=== PATIENT | male | born 1955 | race Caucasian/White ===

== ENCOUNTER 2021-08-27 09:56 | Observation (INO) | payer MEDICARE ==
[2021-08-27 10:56] LABS: CKMB 0.5 ng/mL (0-6.6)
[2021-08-27] MEDS ORDERED: Acetaminophen 650 MG Suppository PR PRN (13:35)
[2021-08-27] MEDS ORDERED: Acetaminophen 325 MG TAB PO PRN (13:35)
[2021-08-27 14:24] LABS: Troponin I 0.029 ng/mL (< 0.028)
[2021-08-27 15:04] LABS: SARS-CoV-2 NAA Rapid Test Not Detected (NotDetected)
[2021-08-27 17:38] LABS: Troponin I 0.028 ng/mL (< 0.028)
[2021-08-27 17:43] VITALS: BMI 26.2
[2021-08-27] MEDS ORDERED: Carvedilol 12.5 MG TAB PO SCH ×2 (18:00→21:00)
[2021-08-27] MEDS ORDERED: Rosuvastatin 10 MG TAB PO SCH (21:00)
[2021-08-27] MEDS: Nitroglycerin 2% Ointment 1 INCH/1 GM Packet TOP SCH (21:41)
[2021-08-28 05:23] LABS: Hemoglobin 10.2 g/dL (13.5-17.5); Mean Corpuscular Hemoglobin 33.4 pg (27.0-33.0); Mean Corpuscular Volume 101.3 fl (81.2-95.1); Mean Platelet Volume 12.5 fl (7.4-10.4); Platelet Count 184 10x3/uL (150-450); RBC Distribution Width 14.6 % (11.5-14.5); Red Blood Cell (RBC) Count 3.05 10x6/uL (4.32-5.72); White Blood Cell (WBC) Count 10.3 10x3/uL (3.5-10.5)
[2021-08-28 05:41] LABS: Anion Gap 17 mmol/L (10-20); BUN (Urea Nitrogen) 54 mg/dL (8.4-25.7); Calc. Creatinine Clearance 9 mL/min (70-130); Calcium 9.6 mg/dL (7.8-10.44); Carbon Dioxide 30 mmol/L (23-31); Cardiac Risk 3.3 (Less than 4.5); Chloride 99 mmol/L (98-107); Cholesterol 130 mg/dl (< 200 Desired); Glucose 75 mg/dL (80-115); HDL Cholesterol 39 mg/dL (>60 Neg Risk); LDL Cholesterol, Calculated 77 mg/dL; Potassium 4.6 mmol/L (3.5-5.1); Sodium 141 mmol/L (136-145); Triglycerides 70 mg/dL (Less than 150)
[2021-08-28] MEDS: Nitroglycerin 2% Ointment 1 INCH/1 GM Packet TOP SCH (06:19)
[2021-08-28 07:00] LABS: MDiff Complete? YES
[2021-08-28 07:03] LABS: Eosinophils 3 % (0-10); Lymphocytes 30 % (21-51); Monocytes 16 % (0-10); Neutrophil 51 % (42-75)
[2021-08-28 07:04] LABS: Platelet Morphology Comment Appears Adequate; RBC Morphology Normal
[2021-08-28] MEDS ORDERED: Carvedilol 12.5 MG TAB PO SCH (08:00)
[2021-08-28] MEDS ORDERED: Prasugrel 10 MG TAB PO SCH (09:00)
[2021-08-28] MEDS ORDERED: Aspirin 81 mg Enteric Coated Tablet PO SCH (09:00)
[2021-08-28 11:51] VITALS: BP 152/68; TEMP 97.3
== END 2021-08-28 12:15 | disposition home or self-care (01) ==
LOC: CSHERS 09:56 → CSHTELE 17:31
PROVIDERS: ADMIT Internal Medicine; ATTEND Internal Medicine
DX: R07.9 Chest pain, unspecified (principal); R77.8 Other specified abnormalities of plasma proteins; I13.2 Hypertensive heart and chronic kidney disease with heart failure and with stage 5 chronic kidney disease, or end stage renal disease; I50.22 Chronic systolic (congestive) heart failure; I50.84 End stage heart failure; N18.6 End stage renal disease; E78.5 Hyperlipidemia, unspecified; I42.0 Dilated cardiomyopathy; Z79.899 Other long term (current) drug therapy; Z95.810 Presence of automatic (implantable) cardiac defibrillator; Z20.822 Contact with and (suspected) exposure to COVID-19; Z79.82 Long term (current) use of aspirin; Z87.891 Personal history of nicotine dependence; Z95.5 Presence of coronary angioplasty implant and graft
CPT/HCPCS: 80048; 80061; 82553; 82962 ×2; 83880; 84484; 85025; 93005; 99285; G0378 ×3; U0002; 36415; 36416

== ENCOUNTER 2021-09-01 01:57 | Inpatient (IN) | payer MEDICARE ==
[2021-09-01 02:21] LABS: #Basophils 0.1 10x3/uL (0.0-0.2); #Eosinphils 0.4 10x3/uL (0.0-0.5); #Monocytes 1.4 10x3/uL (0.0-1.1); #Neutrophils 5.2 10x3/uL (1.5-8.4); %Basophils 0.7 % (0.0-2.0); %Eosinophils 4.3 % (0.0-6.0); %Lymphocytes 30.2 % (18.0-47.0); %Monocytes 13.6 % (0.0-10.0); Hemoglobin 9.9 g/dL (13.5-17.5); Mean Corpuscular HGB CONC 32.7 g/dL (32.0-36.0); Mean Corpuscular Hemoglobin 33.1 pg (27.0-33.0); Mean Corpuscular Volume 101.3 fl (81.2-95.1); Mean Platelet Volume 12.2 fl (7.4-10.4); Platelet Count 189 10x3/uL (150-450); RBC Distribution Width 14.6 % (11.5-14.5); Red Blood Cell (RBC) Count 2.99 10x6/uL (4.32-5.72); White Blood Cell (WBC) Count 10.1 10x3/uL (3.5-10.5)
[2021-09-01 02:39] LABS: ALT (SGPT) 7 U/L (8-55); AST (SGOT) 9 U/L (5-34); Albumin 3.5 g/dL (3.4-4.8); Alkaline Phosphatase 56 U/L (40-110); Anion Gap 19 mmol/L (10-20); BUN (Urea Nitrogen) 38 mg/dL (8.4-25.7); Bilirubin, Total 0.4 mg/dL (0.2-1.2); Calc. Creatinine Clearance 0 mL/min (70-130); Calcium 8.6 mg/dL (7.8-10.44); Carbon Dioxide 26 mmol/L (23-31); Chloride 102 mmol/L (98-107); Glucose 88 mg/dL (80-115); Potassium 4.1 mmol/L (3.5-5.1); Protein, Total 5.5 g/dL (5.8-8.1); Sodium 143 mmol/L (136-145)
[2021-09-01] MEDS ORDERED: Guaifenesin DM 100-10/5 ML UDCUP PO PRN (03:27)
[2021-09-01] MEDS ORDERED: Senokot S 8.6-50 MG TAB PO PRN (03:27)
[2021-09-01] MEDS ORDERED: Calcium Carbonate 500 MG ChewTAB PO PRN (03:27)
[2021-09-01] MEDS ORDERED: Ondansetron PF 4 MG/2 ML Vial IVP PRN (03:27)
[2021-09-01] MEDS ORDERED: HYDROcodone/Acetaminophen 5/325 mg Tablet PO PRN (03:27)
[2021-09-01] MEDS ORDERED: Zolpidem Tartrate 5 MG TAB PO PRN (03:27)
[2021-09-01] MEDS ORDERED: Acetaminophen 325 MG TAB PO PRN (03:27)
[2021-09-01] MEDS ORDERED: Nitroglycerin 0.4 MG TAB (25 Tab Bottle) SL PRN (03:27)
[2021-09-01 04:35] VITALS: BMI 26.6
[2021-09-01 06:43] LABS: CKMB 0.6 ng/mL (0-6.6)
[2021-09-01] MEDS ORDERED: Nitroglycerin 2% Ointment 1 INCH/1 GM Packet TOP SCH (09:00)
[2021-09-01] MEDS: Aspirin 81 mg Enteric Coated Tablet PO SCH (09:35)
[2021-09-01] MEDS: Carvedilol 12.5 MG TAB PO SCH ×2 (09:35→16:54)
[2021-09-01] MEDS: Prasugrel 10 MG TAB PO SCH (09:35)
[2021-09-01] MEDS: Heparin 5,000 UNITS/ML VIAL SC SCH ×3 (09:36→20:29)
[2021-09-01 10:33] LABS: CKMB 0.7 ng/mL (0-6.6)
[2021-09-01] MEDS: Sacubitril 49 MG/Valsartan 51 MG TABLET PO SCH ×2 (17:33→20:30)
[2021-09-01] MEDS: Folic Acid/Vit B Comp W-C PO SCH (20:29)
[2021-09-01] MEDS: Rosuvastatin 10 MG TAB PO SCH (20:29)
[2021-09-01] MEDS ORDERED: DHA PO SCH (21:00)
[2021-09-01] MEDS ORDERED: KRILL PO SCH (21:00)
[2021-09-01] MEDS ORDERED: OMEGA PO SCH (21:00)
[2021-09-01] MEDS ORDERED: LIPIDS PO SCH (21:00)
[2021-09-01] MEDS ORDERED: EPA PO SCH (21:00)
[2021-09-02] MEDS ORDERED: Oxymetazoline HCl 0.05% ( 15 ML ) NASAL PRN (01:47)
[2021-09-02] MEDS ORDERED: Loratadine 10 MG TAB PO PRN (01:47)
[2021-09-02] MEDS ORDERED: Communication Order-Pharmacy FS SCH (09:00)
[2021-09-02] MEDS ORDERED: FLU VACC QS2021-22(65YR UP)/PF 240 MCG/0.7 ML SYRINGE IM ONE (09:00)
[2021-09-02] MEDS: Heparin 5,000 UNITS/ML VIAL SC SCH (09:58)
[2021-09-02] MEDS: Aspirin 81 mg Enteric Coated Tablet PO SCH (12:12)
[2021-09-02] MEDS: Sacubitril 49 MG/Valsartan 51 MG TABLET PO SCH ×2 (12:12→21:01)
[2021-09-02] MEDS: Prasugrel 10 MG TAB PO SCH (12:12)
[2021-09-02] MEDS: Carvedilol 12.5 MG TAB PO SCH ×2 (12:12→21:02)
[2021-09-02 12:46] LABS: PTT 25.5 sec (22.0-33.0); Prothrombin Time 10.7 sec (9.5-12.1)
[2021-09-02] MEDS ORDERED: Heparin 10,000 UNITS/ 10 ML VIAL SLOW IVP PRN (13:14)
[2021-09-02] MEDS ORDERED: Heparin 10,000 UNITS/ 10 ML VIAL ONE ×2 (14:16→15:29)
[2021-09-02] MEDS ORDERED: Nitroglycerin 50 MG/250 ML BOT 250 ML ONE (14:16)
[2021-09-02] MEDS ORDERED: Verapamil 5 MG/2 ML VIAL ONE (14:17)
[2021-09-02] MEDS ORDERED: Adenosine 6 MG/2 ML VIAL ONE (14:17)
[2021-09-02] MEDS ORDERED: Bivalirudin 250 MG VIAL ONE (14:17)
[2021-09-02] MEDS ORDERED: Lidocaine 1% PF 5 ML VIAL ONE (14:18)
[2021-09-02] MEDS ORDERED: Midazolam HCl 2 mg/2 ml Vial ONE (14:33)
[2021-09-02] MEDS ORDERED: Fentanyl 100 MCG/2 ML VIAL ONE (14:33)
[2021-09-02] MEDS ORDERED: Atropine Sulfate 0.4 mg/1 ml Vial ONE (15:04)
[2021-09-02] MEDS ORDERED: Ondansetron PF 4 MG/2 ML Vial ONE (15:04)
[2021-09-02] MEDS ORDERED: Metoprolol Tartrate 5 MG/5 ML VIAL ONE (16:10)
[2021-09-02] MEDS ORDERED: Nitroglycerin 0.4 MG TAB (25 Tab Bottle) SL PRN (16:39)
[2021-09-02] MEDS ORDERED: Sodium Chloride 0.9% 200 ML IV PRN (16:39)
[2021-09-02] MEDS ORDERED: Acetaminophen/Codeine 30-300mg Tablet PO PRN ×2 (16:39)
[2021-09-02 17:43] LABS: SARS-CoV-2 PCR by NAA Not Detected (NotDetected)
[2021-09-02] MEDS: Rosuvastatin 10 MG TAB PO SCH (21:02)
[2021-09-02] MEDS: Folic Acid/Vit B Comp W-C PO SCH (21:02)
[2021-09-03] MEDS: Prasugrel 10 MG TAB PO SCH (08:07)
[2021-09-03] MEDS: Aspirin 81 mg Enteric Coated Tablet PO SCH (08:07)
[2021-09-03] MEDS: Sacubitril 49 MG/Valsartan 51 MG TABLET PO SCH (08:08)
[2021-09-03] MEDS: Carvedilol 12.5 MG TAB PO SCH (08:09)
[2021-09-03 12:22] VITALS: BP 125/60; TEMP 98.4
== END 2021-09-03 14:44 | disposition home or self-care (01) | DRG 246 ==
LOC: CSHERS 01:57 → CSHTELE 04:28 → OBSVTOIN 09-02 16:56
PROVIDERS: ADMIT Student in an Organized Health Care Education/Training Program; ATTEND Internal Medicine
PROC: 027034Z Dilation of Coronary Artery, One Artery with Drug-eluting Intraluminal Device, Percutaneous Approach (ICD-10-PCS; principal; 2021-09-02)
PROC: B2111ZZ Fluoroscopy of Multiple Coronary Arteries using Low Osmolar Contrast (ICD-10-PCS; 2021-09-02)
PROC: B240ZZ3 Ultrasonography of Single Coronary Artery, Intravascular (ICD-10-PCS; 2021-09-02)
DX: I25.110 Atherosclerotic heart disease of native coronary artery with unstable angina pectoris (principal); N18.6 End stage renal disease; Z94.84 Stem cells transplant status; E85.9 Amyloidosis, unspecified; I13.2 Hypertensive heart and chronic kidney disease with heart failure and with stage 5 chronic kidney disease, or end stage renal disease; I50.22 Chronic systolic (congestive) heart failure; I42.0 Dilated cardiomyopathy; Z20.822 Contact with and (suspected) exposure to COVID-19; D53.9 Nutritional anemia, unspecified; E78.5 Hyperlipidemia, unspecified; E78.00 Pure hypercholesterolemia, unspecified; Z96.652 Presence of left artificial knee joint; Z95.810 Presence of automatic (implantable) cardiac defibrillator; Z95.5 Presence of coronary angioplasty implant and graft; Z88.2 Allergy status to sulfonamides; Z79.82 Long term (current) use of aspirin; Z79.899 Other long term (current) drug therapy; Z99.2 Dependence on renal dialysis; Z82.49 Family history of ischemic heart disease and other diseases of the circulatory system; Z90.81 Acquired absence of spleen; I25.2 Old myocardial infarction
CPT/HCPCS: 36415; 71045; 80053; 82553; 82607; 82746; 83880; 84484; 85025; 85347; 85610; 85730; 90935; 92928; 92978; 93005; 93306; 93454; 99152; 99153; C1753; C1769; C1874; C1887; C9600; G0257; G0378; J0153; J0461; J0583; J1644; J2250; J2405; J3010; U0003; U0005

== ENCOUNTER 2021-09-14 22:56 | Inpatient (IN) | payer MEDICARE ==
[2021-09-15 00:09] LABS: PTT 24.8 sec (22.0-33.0); Prothrombin Time 11.2 sec (9.5-12.1)
[2021-09-15] MEDS ORDERED: Guaifenesin DM 100-10/5 ML UDCUP PO PRN (00:23)
[2021-09-15] MEDS ORDERED: Acetaminophen 325 MG TAB PO PRN (00:23)
[2021-09-15] MEDS ORDERED: Nitroglycerin 0.4 MG TAB (25 Tab Bottle) SL PRN (00:23)
[2021-09-15] MEDS ORDERED: Ondansetron PF 4 MG/2 ML Vial IVP PRN (00:23)
[2021-09-15] MEDS ORDERED: Senokot S 8.6-50 MG TAB PO PRN (00:23)
[2021-09-15] MEDS ORDERED: HYDROcodone/Acetaminophen 5/325 mg Tablet PO PRN (00:23)
[2021-09-15] MEDS ORDERED: Zolpidem Tartrate 5 MG TAB PO PRN (00:23)
[2021-09-15] MEDS ORDERED: Morphine 4 MG/ML VIAL SLOW IVP PRN (00:23)
[2021-09-15] MEDS ORDERED: Communication Order-Pharmacy FS ONE (00:23)
[2021-09-15] MEDS ORDERED: Calcium Carbonate 500 MG ChewTAB PO PRN (00:23)
[2021-09-15] MEDS ORDERED: Nitroglycerin 50 MG/250 ML BOT 250 ML IVPB SCH (00:30)
[2021-09-15 00:54] LABS: Platelet Count 195 10x3/uL (150-450)
[2021-09-15] MEDS: Heparin 10,000 UNITS/ 10 ML VIAL SLOW IVP SCH ×4 (01:29→22:14)
[2021-09-15 01:30] LABS: CKMB 0.6 ng/mL (0-6.6)
[2021-09-15] MEDS: Heparin 25,000 units/D5W 500 ML IVPB SCH ×2 (01:30→22:15)
[2021-09-15 06:55] LABS: #Basophils 0.1 10x3/uL (0.0-0.2); #Eosinphils 0.4 10x3/uL (0.0-0.5); #Monocytes 1.4 10x3/uL (0.0-1.1); #Neutrophils 4.2 10x3/uL (1.5-8.4); %Basophils 1.3 % (0.0-2.0); %Eosinophils 4.1 % (0.0-6.0); %Lymphocytes 34.6 % (18.0-47.0); %Monocytes 14.7 % (0.0-10.0); Hemoglobin 9.5 g/dL (13.5-17.5); Mean Corpuscular HGB CONC 32.2 g/dL (32.0-36.0); Mean Corpuscular Hemoglobin 33.2 pg (27.0-33.0); Mean Corpuscular Volume 103.1 fl (81.2-95.1); Platelet Count 187 10x3/uL (150-450); RBC Distribution Width 15.3 % (11.5-14.5); Red Blood Cell (RBC) Count 2.86 10x6/uL (4.32-5.72); White Blood Cell (WBC) Count 9.2 10x3/uL (3.5-10.5)
[2021-09-15 07:05] LABS: Anion Gap 18 mmol/L (10-20); BUN (Urea Nitrogen) 43 mg/dL (8.4-25.7); Calc. Creatinine Clearance 8 mL/min (70-130); Calcium 9.7 mg/dL (7.8-10.44); Carbon Dioxide 32 mmol/L (23-31); Chloride 96 mmol/L (98-107); Glucose 91 mg/dL (80-115); Potassium 4.7 mmol/L (3.5-5.1); Sodium 141 mmol/L (136-145)
[2021-09-15 07:27] LABS: CKMB 0.8 ng/mL (0-6.6)
[2021-09-15] MEDS: Aspirin 81 mg Enteric Coated Tablet PO SCH (08:47)
[2021-09-15] MEDS: Sacubitril 49 MG/Valsartan 51 MG TABLET PO SCH ×2 (08:47→21:13)
[2021-09-15] MEDS: Carvedilol 12.5 MG TAB PO SCH ×2 (08:47→17:05)
[2021-09-15] MEDS: Prasugrel 10 MG TAB PO SCH (08:47)
[2021-09-15] MEDS ORDERED: Rosuvastatin 10 MG TAB PO SCH (21:00)
[2021-09-15] MEDS ORDERED: DHA PO SCH (21:00)
[2021-09-15] MEDS ORDERED: OMEGA PO SCH (21:00)
[2021-09-15] MEDS ORDERED: LIPIDS PO SCH (21:00)
[2021-09-15] MEDS ORDERED: Folic Acid/Vit B Comp W-C PO SCH (21:00)
[2021-09-15] MEDS ORDERED: EPA PO SCH (21:00)
[2021-09-15] MEDS ORDERED: KRILL PO SCH (21:00)
[2021-09-15] MEDS: Folic Acid/Vit B Comp W-C PO SCH (21:13)
[2021-09-15] MEDS: Rosuvastatin 20 MG TAB PO SCH (21:13)
[2021-09-16 04:21] LABS: #Eosinphils 0.3 10x3/uL (0.0-0.5); #Monocytes 0.3 10x3/uL (0.0-1.1); #Neutrophils 7.4 10x3/uL (1.5-8.4); %Basophils 0.1 % (0.0-2.0); %Eosinophils 3.3 % (0.0-6.0); %Lymphocytes 12.4 % (18.0-47.0); %Monocytes 3.2 % (0.0-10.0); %Neutrophils 80.8 % (40.0-75.0); Hemoglobin 10.2 g/dL (13.5-17.5); Mean Corpuscular HGB CONC 33.2 g/dL (32.0-36.0); Mean Corpuscular Hemoglobin 33.8 pg (27.0-33.0); Mean Corpuscular Volume 101.7 fl (81.2-95.1); Mean Platelet Volume 12.5 fl (7.4-10.4); Platelet Count 199 10x3/uL (150-450); RBC Distribution Width 15.3 % (11.5-14.5); Red Blood Cell (RBC) Count 3.02 10x6/uL (4.32-5.72); White Blood Cell (WBC) Count 9.2 10x3/uL (3.5-10.5)
[2021-09-16 04:38] LABS: Anion Gap 18 mmol/L (10-20); BUN (Urea Nitrogen) 53 mg/dL (8.4-25.7); Calc. Creatinine Clearance 7 mL/min (70-130); Carbon Dioxide 30 mmol/L (23-31); Chloride 95 mmol/L (98-107); Glucose 95 mg/dL (80-115); Potassium 4.9 mmol/L (3.5-5.1); Sodium 138 mmol/L (136-145)
[2021-09-16 04:50] LABS: Prothrombin Time 11.5 sec (9.5-12.1)
[2021-09-16 04:57] LABS: PTT 94.1 sec (22.0-33.0)
[2021-09-16] MEDS: Carvedilol 12.5 MG TAB PO SCH ×2 (08:50→16:36)
[2021-09-16] MEDS: Aspirin 81 mg Enteric Coated Tablet PO SCH ×2 (08:50→09:05)
[2021-09-16] MEDS: Prasugrel 10 MG TAB PO SCH (08:52)
[2021-09-16] MEDS: Sacubitril 49 MG/Valsartan 51 MG TABLET PO SCH ×2 (09:10→20:42)
[2021-09-16] MEDS ORDERED: Communication Order-Pharmacy FS SCH (09:30)
[2021-09-16 10:03] LABS: Troponin I 0.095 ng/mL (< 0.028)
[2021-09-16 10:05] LABS: PTT 72.9 sec (22.0-33.0)
[2021-09-16] MEDS: Folic Acid/Vit B Comp W-C PO SCH (20:42)
[2021-09-16] MEDS: Rosuvastatin 20 MG TAB PO SCH (20:43)
[2021-09-17 03:56] LABS: #Eosinphils 0.4 10x3/uL (0.0-0.5); #Monocytes 0.7 10x3/uL (0.0-1.1); #Neutrophils 9.4 10x3/uL (1.5-8.4); %Basophils 0.3 % (0.0-2.0); %Eosinophils 3.7 % (0.0-6.0); %Lymphocytes 9.4 % (18.0-47.0); %Neutrophils 80.3 % (40.0-75.0); Hemoglobin 10.9 g/dL (13.5-17.5); Mean Corpuscular HGB CONC 33.1 g/dL (32.0-36.0); Mean Corpuscular Hemoglobin 33.7 pg (27.0-33.0); Mean Corpuscular Volume 101.9 fl (81.2-95.1); Mean Platelet Volume 12.2 fl (7.4-10.4); Platelet Count 195 10x3/uL (150-450); RBC Distribution Width 15.4 % (11.5-14.5); Red Blood Cell (RBC) Count 3.23 10x6/uL (4.32-5.72); White Blood Cell (WBC) Count 11.7 10x3/uL (3.5-10.5)
[2021-09-17 04:07] LABS: PTT 26.8 sec (22.0-33.0); Prothrombin Time 11.2 sec (9.5-12.1)
[2021-09-17 04:12] LABS: ALT (SGPT) 10 U/L (8-55); AST (SGOT) 9 U/L (5-34); Albumin 3.6 g/dL (3.4-4.8); Alkaline Phosphatase 55 U/L (40-110); Anion Gap 14 mmol/L (10-20); BUN (Urea Nitrogen) 35 mg/dL (8.4-25.7); Bilirubin, Total 0.4 mg/dL (0.2-1.2); Calc. Creatinine Clearance 11 mL/min (70-130); Calcium 8.9 mg/dL (7.8-10.44); Carbon Dioxide 30 mmol/L (23-31); Chloride 99 mmol/L (98-107); Globulin 2.7 g/dL (2.4-3.5); Glucose 93 mg/dL (80-115); Potassium 4.3 mmol/L (3.5-5.1); Protein, Total 6.3 g/dL (5.8-8.1); Sodium 139 mmol/L (136-145)
[2021-09-17] MEDS: Sacubitril 49 MG/Valsartan 51 MG TABLET PO SCH (08:10)
[2021-09-17] MEDS: Carvedilol 12.5 MG TAB PO SCH (08:10)
[2021-09-17] MEDS: Prasugrel 10 MG TAB PO SCH (08:10)
[2021-09-17] MEDS: Aspirin 81 mg Enteric Coated Tablet PO SCH (08:10)
[2021-09-17] MEDS ORDERED: Nitroglycerin 50 MG/250 ML BOT 0 ML ONE (08:52)
[2021-09-17] MEDS ORDERED: Heparin 10,000 UNITS/ 10 ML VIAL ONE (08:52)
[2021-09-17] MEDS ORDERED: Verapamil 5 MG/2 ML VIAL ONE (08:53)
[2021-09-17] MEDS ORDERED: Adenosine 6 MG/2 ML VIAL ONE (08:54)
[2021-09-17] MEDS ORDERED: Bivalirudin 250 MG VIAL ONE (08:54)
[2021-09-17] MEDS ORDERED: Lidocaine 1% PF 5 ML VIAL ONE (08:55)
[2021-09-17] MEDS ORDERED: Midazolam HCl 2 mg/2 ml Vial ONE (08:56)
[2021-09-17] MEDS ORDERED: Fentanyl 100 MCG/2 ML VIAL ONE (08:56)
[2021-09-17 09:19] VITALS: BMI 27.1
[2021-09-17] MEDS ORDERED: Lidocaine 1% (PF) 30 ML VIAL ONE (09:53)
[2021-09-17] MEDS ORDERED: Sodium Chloride 0.9% 200 ML IV PRN (11:24)
[2021-09-17] MEDS ORDERED: Acetaminophen/Codeine 30-300mg Tablet PO PRN ×2 (11:24)
[2021-09-17] MEDS ORDERED: Nitroglycerin 0.4 MG TAB (25 Tab Bottle) SL PRN (11:24)
[2021-09-17 13:53] VITALS: TEMP 98
[2021-09-17] MEDS ORDERED: Heparin 5,000 UNITS/ML VIAL SC SCH (15:00)
[2021-09-17 16:27] VITALS: BP 125/56
== END 2021-09-17 17:10 | disposition home or self-care (01) | DRG 246 ==
LOC: CSHIMCU 22:56
PROVIDERS: ADMIT Student in an Organized Health Care Education/Training Program; ATTEND Internal Medicine
PROC: 5A1D70Z Performance of Urinary Filtration, Intermittent, Less than 6 Hours Per Day (ICD-10-PCS; 2021-09-16)
PROC: 027034Z Dilation of Coronary Artery, One Artery with Drug-eluting Intraluminal Device, Percutaneous Approach (ICD-10-PCS; principal; 2021-09-17)
PROC: 4A023N7 Measurement of Cardiac Sampling and Pressure, Left Heart, Percutaneous Approach (ICD-10-PCS; 2021-09-17)
PROC: B2111ZZ Fluoroscopy of Multiple Coronary Arteries using Low Osmolar Contrast (ICD-10-PCS; 2021-09-17)
DX: I25.118 Atherosclerotic heart disease of native coronary artery with other forms of angina pectoris (principal); N18.6 End stage renal disease; I24.9 Acute ischemic heart disease, unspecified; I16.1 Hypertensive emergency; E85.9 Amyloidosis, unspecified; I12.0 Hypertensive chronic kidney disease with stage 5 chronic kidney disease or end stage renal disease; I42.0 Dilated cardiomyopathy; R77.8 Other specified abnormalities of plasma proteins; D53.9 Nutritional anemia, unspecified; E78.5 Hyperlipidemia, unspecified; Z96.652 Presence of left artificial knee joint; Z95.5 Presence of coronary angioplasty implant and graft; Z99.2 Dependence on renal dialysis; Z95.810 Presence of automatic (implantable) cardiac defibrillator; Z88.2 Allergy status to sulfonamides; Z79.82 Long term (current) use of aspirin; Z79.899 Other long term (current) drug therapy; Z90.81 Acquired absence of spleen; Z87.891 Personal history of nicotine dependence
CPT/HCPCS: 36415; 80048; 80053; 82553; 84484; 85014; 85018; 85025; 85049; 85347; 85610; 85730; 90935; 92928; 92978; 93005; 93010; 93454; 97139; 99152; 99153; C1713; C1753; C1874; C1887; C9600; G0257; J0153; J0583; J1644; J2001; J2250; J2405; J3010

== ENCOUNTER 2021-10-03 13:42 | Observation (INO) | payer MEDICARE ==
[2021-10-03] MEDS ORDERED: diphenhydrAMINE 50 MG/ML VIAL ONE (14:10)
[2021-10-03] MEDS ORDERED: diphenhydrAMINE 25 MG CAP ONE (14:12)
[2021-10-03 14:39] LABS: Hemoglobin 10.6 g/dL (13.5-17.5); Mean Corpuscular HGB CONC 33.8 g/dL (32.0-36.0); Mean Corpuscular Hemoglobin 34.3 pg (27.0-33.0); Mean Corpuscular Volume 101.6 fl (81.2-95.1); Mean Platelet Volume 12.3 fl (7.4-10.4); Platelet Count 202 10x3/uL (150-450); RBC Distribution Width 15.4 % (11.5-14.5); Red Blood Cell (RBC) Count 3.09 10x6/uL (4.32-5.72); White Blood Cell (WBC) Count 9.5 10x3/uL (3.5-10.5)
[2021-10-03 14:47] LABS: ALT (SGPT) 9 U/L (8-55); AST (SGOT) 9 U/L (5-34); Alkaline Phosphatase 54 U/L (40-110); Anion Gap 14 mmol/L (10-20); BUN (Urea Nitrogen) 42 mg/dL (8.4-25.7); Bilirubin, Total 0.6 mg/dL (0.2-1.2); Calc. Creatinine Clearance 0 mL/min (70-130); Calcium 10.1 mg/dL (7.8-10.44); Carbon Dioxide 32 mmol/L (23-31); Chloride 96 mmol/L (98-107); Globulin 2.5 g/dL (2.4-3.5); Glucose 125 mg/dL (80-115); Lipase 37 U/L (8-78); Potassium 5.2 mmol/L (3.5-5.1); Protein, Total 6.5 g/dL (5.8-8.1); Sodium 137 mmol/L (136-145)
[2021-10-03 15:08] LABS: CKMB 0.7 ng/mL (0-6.6)
[2021-10-03 15:33] LABS: MDiff Complete? YES; Manual Diff?? YES
[2021-10-03 15:34] LABS: Eosinophils 4 % (0-10); Lymphocytes 20 % (21-51); Monocytes 16 % (0-10); Neutrophil 60 % (42-75); Platelet Morphology Comment Appears Adequate; RBC Morphology Normal
[2021-10-03] MEDS ORDERED: Sodium Chloride 0.65% Nasal 44 ML BOT EA NARE PRN (17:22)
[2021-10-03] MEDS ORDERED: Carvedilol 12.5 MG TAB PO SCH (18:30)
[2021-10-03] MEDS ORDERED: hydrALAZINE 20 MG/ML VIAL SLOW IVP PRN (18:48)
[2021-10-03 19:11] VITALS: BMI 25.8
[2021-10-03 20:32] LABS: Troponin I 0.075 ng/mL (< 0.028)
[2021-10-03] MEDS ORDERED: Rosuvastatin 20 MG TAB PO SCH (21:00)
[2021-10-03] MEDS: Sacubitril 49 MG/Valsartan 51 MG TABLET PO SCH (22:53)
[2021-10-03] MEDS: Heparin 5,000 UNITS/ML VIAL SC SCH (23:44)
[2021-10-04 04:54] LABS: Hemoglobin 9.9 g/dL (13.5-17.5); Mean Corpuscular HGB CONC 33.4 g/dL (32.0-36.0); Mean Corpuscular Hemoglobin 33.7 pg (27.0-33.0); Mean Corpuscular Volume 100.7 fl (81.2-95.1); Mean Platelet Volume 12.4 fl (7.4-10.4); Platelet Count 197 10x3/uL (150-450); RBC Distribution Width 15.1 % (11.5-14.5); Red Blood Cell (RBC) Count 2.94 10x6/uL (4.32-5.72); White Blood Cell (WBC) Count 9.8 10x3/uL (3.5-10.5)
[2021-10-04 04:55] LABS: Anion Gap 17 mmol/L (10-20); BUN (Urea Nitrogen) 53 mg/dL (8.4-25.7); Calc. Creatinine Clearance 8 mL/min (70-130); Calcium 9.7 mg/dL (7.8-10.44); Carbon Dioxide 29 mmol/L (23-31); Chloride 98 mmol/L (98-107); Glucose 94 mg/dL (80-115); Potassium 5.3 mmol/L (3.5-5.1); Sodium 139 mmol/L (136-145)
[2021-10-04 05:05] LABS: MDiff Complete? YES
[2021-10-04 05:15] LABS: Band 1 % (5-11); Eosinophils 3 % (0-10); Lymphocytes 25 % (21-51); Monocytes 15 % (0-10); Neutrophil 56 % (42-75)
[2021-10-04 05:17] LABS: Platelet Morphology Comment Appears Adequate; RBC Morphology Normal
[2021-10-04] MEDS ORDERED: Carvedilol 12.5 MG TAB PO SCH (08:00)
[2021-10-04 08:33] VITALS: BP 185/79; TEMP 98
[2021-10-04] MEDS ORDERED: Aspirin 81 mg Enteric Coated Tablet PO SCH (09:00)
[2021-10-04] MEDS ORDERED: FLU VACC QS2021-22(65YR UP)/PF 240 MCG/0.7 ML SYRINGE IM ONE (09:00)
[2021-10-04] MEDS ORDERED: Loratadine 10 MG TAB PO SCH (09:00)
[2021-10-04] MEDS ORDERED: Prasugrel 10 MG TAB PO SCH (09:00)
[2021-10-04] MEDS: Heparin 5,000 UNITS/ML VIAL SC SCH ×2 (09:28→15:32)
[2021-10-04] MEDS ORDERED: Heparin 10,000 UNITS/ 10 ML VIAL SLOW IVP PRN (11:03)
[2021-10-04] MEDS: Sacubitril 49 MG/Valsartan 51 MG TABLET PO SCH (15:28)
== END 2021-10-04 16:05 | disposition home or self-care (01) ==
LOC: CSHERS 13:42 → INTOOBSV 18:14 → CSHTELE 18:14
PROVIDERS: ADMIT Internal Medicine; ATTEND Family Medicine
DX: R07.9 Chest pain, unspecified (principal); I25.10 Atherosclerotic heart disease of native coronary artery without angina pectoris; I13.0 Hypertensive heart and chronic kidney disease with heart failure and stage 1 through stage 4 chronic kidney disease, or unspecified chronic kidney disease; I50.42 Chronic combined systolic (congestive) and diastolic (congestive) heart failure; N18.6 End stage renal disease; I42.0 Dilated cardiomyopathy; Z95.5 Presence of coronary angioplasty implant and graft; Z79.899 Other long term (current) drug therapy; Z79.82 Long term (current) use of aspirin; Z79.01 Long term (current) use of anticoagulants; Z95.810 Presence of automatic (implantable) cardiac defibrillator; Z87.891 Personal history of nicotine dependence; E78.5 Hyperlipidemia, unspecified
CPT/HCPCS: 36415; 71045; 80048; 80053; 82553; 83690; 83880; 84484; 85025; 90935; 93005; 94760; G0257; G0378; J1200; J1644

== ENCOUNTER 2021-12-14 11:02 | Inpatient (IN) | payer MEDICARE ==
[2021-12-14] MEDS ORDERED: Nitroglycerin 0.4 MG TAB 1 EACH ONE (11:36)
[2021-12-14] MEDS ORDERED: Nitroglycerin 2% Ointment 1 INCH/1 GM Packet ONE (11:36)
[2021-12-14 11:39] LABS: #Basophils 0.1 10x3/uL (0.0-0.2); #Eosinphils 0.1 10x3/uL (0.0-0.5); #Monocytes 1.3 10x3/uL (0.0-1.1); #Neutrophils 7.7 10x3/uL (1.5-8.4); %Basophils 0.8 % (0.0-2.0); %Eosinophils 1.1 % (0.0-6.0); %Lymphocytes 14.4 % (18.0-47.0); %Monocytes 11.8 % (0.0-10.0); %Neutrophils 71.7 % (40.0-75.0); Hemoglobin 12.4 g/dL (13.5-17.5); Mean Corpuscular HGB CONC 33.1 g/dL (32.0-36.0); Mean Corpuscular Hemoglobin 33.2 pg (27.0-33.0); Mean Corpuscular Volume 100.3 fl (81.2-95.1); Mean Platelet Volume 11.9 fl (7.4-10.4); Platelet Count 173 10x3/uL (150-450); RBC Distribution Width 17.1 % (11.5-14.5); Red Blood Cell (RBC) Count 3.74 10x6/uL (4.32-5.72); White Blood Cell (WBC) Count 10.7 10x3/uL (3.5-10.5)
[2021-12-14 11:44] LABS: ALT (SGPT) 25 U/L (8-55); AST (SGOT) 21 U/L (5-34); Albumin 4.3 g/dL (3.4-4.8); Alkaline Phosphatase 63 U/L (40-110); Anion Gap 20 mmol/L (10-20); BUN (Urea Nitrogen) 32 mg/dL (8.4-25.7); Bilirubin, Total 0.9 mg/dL (0.2-1.2); CK (CPK) 50 U/L (30-200); Calc. Creatinine Clearance 0 mL/min (70-130); Calcium 9.6 mg/dL (7.8-10.44); Carbon Dioxide 27 mmol/L (23-31); Chloride 99 mmol/L (98-107); Globulin 2.1 g/dL (2.4-3.5); Glucose 90 mg/dL (80-115); Potassium 4.9 mmol/L (3.5-5.1); Protein, Total 6.4 g/dL (5.8-8.1); Sodium 141 mmol/L (136-145)
[2021-12-14 12:08] LABS: CKMB 0.9 ng/mL (0-6.6)
[2021-12-14 12:59] LABS: SARS-CoV-2 NAA Rapid Test Not Detected (NotDetected)
[2021-12-14 13:09] LABS: Bilirubin Neg (Negative); Blood, Urine Negative (Negative); Clarity Clear (Clear); Glucose, Urine (Dipstick) Normal (Negative); Ketone, Urine Negative (Negative); Leukocyte Negative (Negative); Nitrite Negative (Negative); Protein, Urine (Dipstick) 100 mg/dl (Neg-Trace); Specific Gravity, Urine 1.015 (1.002-1.036); Urobilinogen Normal mg/dL (Less than 2)
[2021-12-14 13:18] LABS: RBC/HPF 0-3 HPF (0-3); WBC/HPF 0-3 HPF (0-3)
[2021-12-14 13:19] LABS: Bacteria/HPF Rare-Few HPF (None Seen); Squamous Epithelial 0-3 HPF (0-3)
[2021-12-14] MEDS ORDERED: Acetaminophen 325 MG TAB PO PRN (13:19)
[2021-12-14] MEDS ORDERED: Ondansetron PF 4 MG/2 ML Vial IVP PRN (13:19)
[2021-12-14] MEDS ORDERED: Furosemide 40 MG/4 ML VIAL SLOW IVP SCH (13:30)
[2021-12-14 14:25] VITALS: BMI 26.6
[2021-12-14] MEDS: Heparin 5,000 UNITS/ML VIAL SC SCH ×2 (15:20→20:16)
[2021-12-14] MEDS ORDERED: hydrALAZINE 20 MG/ML VIAL SLOW IVP PRN (15:22)
[2021-12-14] MEDS: Carvedilol 12.5 MG TAB PO SCH (17:55)
[2021-12-14] MEDS: Rosuvastatin 10 MG TAB PO SCH (20:17)
[2021-12-14] MEDS: Folic Acid/Vit B Comp W-C PO SCH (20:18)
[2021-12-14] MEDS: Sacubitril 49 MG/Valsartan 51 MG TABLET PO SCH (20:22)
[2021-12-15 00:25] LABS: Troponin I 0.042 ng/mL (< 0.028)
[2021-12-15] MEDS ORDERED: cloNIDine 0.1 MG TAB PO SCH (02:00)
[2021-12-15 05:04] LABS: #Basophils 0.1 10x3/uL (0.0-0.2); #Eosinphils 0.2 10x3/uL (0.0-0.5); #Monocytes 1.2 10x3/uL (0.0-1.1); %Basophils 0.7 % (0.0-2.0); %Eosinophils 1.5 % (0.0-6.0); %Monocytes 11.1 % (0.0-10.0); %Neutrophils 75.3 % (40.0-75.0); Mean Corpuscular HGB CONC 33.6 g/dL (32.0-36.0); Mean Corpuscular Hemoglobin 32.9 pg (27.0-33.0); Mean Corpuscular Volume 97.9 fl (81.2-95.1); Mean Platelet Volume 12.5 fl (7.4-10.4); Platelet Count 174 10x3/uL (150-450); RBC Distribution Width 16.9 % (11.5-14.5); Red Blood Cell (RBC) Count 3.34 10x6/uL (4.32-5.72); White Blood Cell (WBC) Count 10.6 10x3/uL (3.5-10.5)
[2021-12-15 05:25] LABS: Anion Gap 20 mmol/L (10-20); BUN (Urea Nitrogen) 45 mg/dL (8.4-25.7); Calc. Creatinine Clearance 11 mL/min (70-130); Calcium 9.2 mg/dL (7.8-10.44); Carbon Dioxide 26 mmol/L (23-31); Chloride 101 mmol/L (98-107); Glucose 93 mg/dL (80-115); Potassium 4.6 mmol/L (3.5-5.1); Sodium 142 mmol/L (136-145)
[2021-12-15] MEDS: Carvedilol 12.5 MG TAB PO SCH ×2 (07:59→16:27)
[2021-12-15] MEDS: Furosemide 40 MG/4 ML VIAL SLOW IVP SCH (07:59)
[2021-12-15] MEDS: Prasugrel 10 MG TAB PO SCH (07:59)
[2021-12-15] MEDS: Aspirin 81 mg Enteric Coated Tablet PO SCH (07:59)
[2021-12-15] MEDS: Sacubitril 49 MG/Valsartan 51 MG TABLET PO SCH ×2 (07:59→20:43)
[2021-12-15] MEDS: Heparin 5,000 UNITS/ML VIAL SC SCH ×3 (07:59→20:42)
[2021-12-15] MEDS: hydrALAZINE 25 MG TAB PO SCH ×2 (16:27→20:41)
[2021-12-15] MEDS: Rosuvastatin 10 MG TAB PO SCH (20:41)
[2021-12-15] MEDS: Folic Acid/Vit B Comp W-C PO SCH (20:41)
[2021-12-15] MEDS ORDERED: Nitroglycerin 2% Ointment 1 INCH/1 GM Packet TOP SCH (22:45)
[2021-12-15] MEDS: Nitroglycerin 0.4 MG TAB (25 Tab Bottle) SL PRN (22:58)
[2021-12-16 04:33] LABS: #Eosinphils 0.3 10x3/uL (0.0-0.5); #Monocytes 0.7 10x3/uL (0.0-1.1); #Neutrophils 5.2 10x3/uL (1.5-8.4); %Basophils 0.5 % (0.0-2.0); %Eosinophils 3.9 % (0.0-6.0); %Lymphocytes 16.6 % (18.0-47.0); %Monocytes 9.9 % (0.0-10.0); %Neutrophils 68.8 % (40.0-75.0); Hemoglobin 10.8 g/dL (13.5-17.5); Mean Corpuscular HGB CONC 34.4 g/dL (32.0-36.0); Mean Corpuscular Hemoglobin 33.3 pg (27.0-33.0); Mean Corpuscular Volume 96.9 fl (81.2-95.1); Mean Platelet Volume 12.4 fl (7.4-10.4); Platelet Count 191 10x3/uL (150-450); RBC Distribution Width 17.1 % (11.5-14.5); Red Blood Cell (RBC) Count 3.24 10x6/uL (4.32-5.72); White Blood Cell (WBC) Count 7.5 10x3/uL (3.5-10.5)
[2021-12-16] MEDS: Nitroglycerin 0.4 MG TAB (25 Tab Bottle) SL PRN (04:45)
[2021-12-16 04:58] LABS: Anion Gap 23 mmol/L (10-20); BUN (Urea Nitrogen) 63 mg/dL (8.4-25.7); Calc. Creatinine Clearance 9 mL/min (70-130); Calcium 9.2 mg/dL (7.8-10.44); Carbon Dioxide 23 mmol/L (23-31); Chloride 103 mmol/L (98-107); Glucose 83 mg/dL (80-115); Potassium 4.7 mmol/L (3.5-5.1); Sodium 144 mmol/L (136-145)
[2021-12-16] MEDS ORDERED: Carvedilol 25 MG TAB PO SCH (08:30)
[2021-12-16] MEDS: Aspirin 81 mg Enteric Coated Tablet PO SCH (09:28)
[2021-12-16] MEDS: Heparin 5,000 UNITS/ML VIAL SC SCH ×3 (10:50→21:46)
[2021-12-16] MEDS: Carvedilol 12.5 MG TAB PO SCH (10:50)
[2021-12-16] MEDS ORDERED: Heparin 10,000 UNITS/ 10 ML VIAL SLOW IVP PRN (14:00)
[2021-12-16] MEDS: Furosemide 40 MG/4 ML VIAL SLOW IVP SCH (15:50)
[2021-12-16] MEDS: Sacubitril 49 MG/Valsartan 51 MG TABLET PO SCH ×2 (15:50→21:35)
[2021-12-16] MEDS: Prasugrel 10 MG TAB PO SCH (15:50)
[2021-12-16] MEDS: hydrALAZINE 25 MG TAB PO SCH ×3 (15:50→21:36)
[2021-12-16] MEDS: Carvedilol 25 MG TAB PO SCH (17:48)
[2021-12-16] MEDS: Folic Acid/Vit B Comp W-C PO SCH (21:36)
[2021-12-16] MEDS: Rosuvastatin 10 MG TAB PO SCH (21:37)
[2021-12-17 04:11] LABS: #Basophils 0.1 10x3/uL (0.0-0.2); #Eosinphils 0.5 10x3/uL (0.0-0.5); #Monocytes 0.9 10x3/uL (0.0-1.1); #Neutrophils 4.6 10x3/uL (1.5-8.4); %Basophils 0.7 % (0.0-2.0); %Eosinophils 6.7 % (0.0-6.0); %Lymphocytes 17.1 % (18.0-47.0); %Monocytes 12.4 % (0.0-10.0); %Neutrophils 62.8 % (40.0-75.0); Hemoglobin 10.8 g/dL (13.5-17.5); Mean Corpuscular HGB CONC 34.1 g/dL (32.0-36.0); Mean Corpuscular Hemoglobin 33.4 pg (27.0-33.0); Mean Corpuscular Volume 98.1 fl (81.2-95.1); Mean Platelet Volume 12.3 fl (7.4-10.4); Platelet Count 191 10x3/uL (150-450); RBC Distribution Width 17.2 % (11.5-14.5); Red Blood Cell (RBC) Count 3.23 10x6/uL (4.32-5.72); White Blood Cell (WBC) Count 7.3 10x3/uL (3.5-10.5)
[2021-12-17 04:38] LABS: Anion Gap 19 mmol/L (10-20); BUN (Urea Nitrogen) 48 mg/dL (8.4-25.7); Calc. Creatinine Clearance 11 mL/min (70-130); Calcium 8.8 mg/dL (7.8-10.44); Carbon Dioxide 26 mmol/L (23-31); Chloride 103 mmol/L (98-107); Glucose 76 mg/dL (80-115); Potassium 4.7 mmol/L (3.5-5.1); Sodium 143 mmol/L (136-145)
[2021-12-17] MEDS ORDERED: Sacubitril 49 MG/Valsartan 51 MG TABLET PO SCH ×2 (09:15→21:00)
[2021-12-17 12:37] VITALS: BP 186/91; TEMP 97.9
[2021-12-17] MEDS: Aspirin 81 mg Enteric Coated Tablet PO SCH (13:41)
[2021-12-17] MEDS: Prasugrel 10 MG TAB PO SCH (13:46)
[2021-12-17] MEDS: Furosemide 40 MG/4 ML VIAL SLOW IVP SCH (13:48)
[2021-12-17] MEDS: Carvedilol 25 MG TAB PO SCH (14:27)
[2021-12-17] MEDS: Heparin 5,000 UNITS/ML VIAL SC SCH (14:27)
[2021-12-17] MEDS: hydrALAZINE 25 MG TAB PO SCH (14:27)
== END 2021-12-17 14:23 | disposition home or self-care (01) | DRG 304 ==
LOC: CSHERS 11:02 → CSHTELE 14:10 → OBSVTOIN 14:11
PROVIDERS: ADMIT Hospitalist; ATTEND Hospitalist
PROC: 5A1D70Z Performance of Urinary Filtration, Intermittent, Less than 6 Hours Per Day (ICD-10-PCS; principal; 2021-12-17)
DX: I16.0 Hypertensive urgency (principal); N18.6 End stage renal disease; Z94.84 Stem cells transplant status; I42.0 Dilated cardiomyopathy; I50.32 Chronic diastolic (congestive) heart failure; I13.2 Hypertensive heart and chronic kidney disease with heart failure and with stage 5 chronic kidney disease, or end stage renal disease; Z20.822 Contact with and (suspected) exposure to COVID-19; E78.5 Hyperlipidemia, unspecified; R79.89 Other specified abnormal findings of blood chemistry; D63.1 Anemia in chronic kidney disease; Z96.652 Presence of left artificial knee joint; I25.10 Atherosclerotic heart disease of native coronary artery without angina pectoris; I25.5 Ischemic cardiomyopathy; G47.30 Sleep apnea, unspecified; Z95.5 Presence of coronary angioplasty implant and graft; Z99.2 Dependence on renal dialysis; Z88.8 Allergy status to other drugs, medicaments and biological substances; Z88.2 Allergy status to sulfonamides; Z79.899 Other long term (current) drug therapy; Z79.82 Long term (current) use of aspirin; Z95.810 Presence of automatic (implantable) cardiac defibrillator; Z90.81 Acquired absence of spleen; Z87.891 Personal history of nicotine dependence; Z82.49 Family history of ischemic heart disease and other diseases of the circulatory system
CPT/HCPCS: 36415; 71045; 80048; 80053; 81003; 81015; 82550; 82553; 83880; 84484; 85025; 90935; 93005; 93798; 94760; G0257; J0360; J1644; J1940; U0002

== ENCOUNTER 2022-09-29 07:29 | Observation (INO) | payer MEDICARE ==
[2022-09-29] MEDS ORDERED: Aspirin Chewable 81 MG TAB ONE (08:01)
[2022-09-29 08:08] LABS: ALT (SGPT) 20 U/L (8-55); AST (SGOT) 13 U/L (5-34); Albumin 4.4 g/dL (3.4-4.8); Alkaline Phosphatase 79 U/L (40-110); Anion Gap 24 mmol/L (10-20); BUN (Urea Nitrogen) 72 mg/dL (8.4-25.7); Bilirubin, Total 0.5 mg/dL (0.2-1.2); CK (CPK) 86 U/L (30-200); Calc. Creatinine Clearance 0 mL/min (70-130); Calcium 9.5 mg/dL (7.8-10.44); Carbon Dioxide 25 mmol/L (23-31); Chloride 96 mmol/L (98-107); Estimated GFR 5; Globulin 2.7 g/dL (2.4-3.5); Glucose 90 mg/dL (80-115); Lipase 63 U/L (8-78); Potassium 5.6 mmol/L (3.5-5.1); Protein, Total 7.1 g/dL (5.8-8.1); Sodium 139 mmol/L (136-145)
[2022-09-29 08:09] LABS: #Basophils 0.1 10x3/uL (0.0-0.2); #Eosinphils 0.2 10x3/uL (0.0-0.5); #Neutrophils 7.2 10x3/uL (1.5-8.4); %Basophils 0.9 % (0.0-2.0); %Eosinophils 2.4 % (0.0-6.0); %Lymphocytes 14.7 % (18.0-47.0); %Monocytes 10.3 % (0.0-10.0); %Neutrophils 71.4 % (40.0-75.0); Hemoglobin 11.7 g/dL (13.5-17.5); Mean Corpuscular HGB CONC 34.2 g/dL (32.0-36.0); Mean Corpuscular Hemoglobin 33.5 pg (27.0-33.0); Mean Platelet Volume 11.9 fl (7.4-10.4); Platelet Count 241 10x3/uL (150-450); RBC Distribution Width 14.4 % (11.5-14.5); Red Blood Cell (RBC) Count 3.49 10x6/uL (4.32-5.72)
[2022-09-29 08:30] LABS: CKMB 0.9 ng/mL (0-6.6)
[2022-09-29] MEDS ORDERED: Ondansetron ODT 4 MG TAB PO PRN (10:54)
[2022-09-29] MEDS ORDERED: Ondansetron PF 4 MG/2 ML Vial IVP PRN (10:54)
[2022-09-29] MEDS ORDERED: Acetaminophen 325 MG TAB PO PRN (10:54)
[2022-09-29] MEDS ORDERED: Nitroglycerin 0.4 MG TAB (25 Tab Bottle) SL PRN (10:59)
[2022-09-29 11:29] LABS: Troponin I 0.039 ng/mL (< 0.028)
[2022-09-29 13:50] LABS: Troponin I 0.033 ng/mL (< 0.028)
[2022-09-29] MEDS ORDERED: Heparin 10,000 UNITS/ 10 ML VIAL SLOW IVP PRN (14:33)
[2022-09-29] MEDS: Carvedilol 25 MG TAB PO SCH (17:45)
[2022-09-29 19:54] VITALS: BMI 26.6
[2022-09-29] MEDS: Sacubitril 49 MG/Valsartan 51 MG TABLET PO SCH (20:56)
[2022-09-29] MEDS ORDERED: Rosuvastatin 20 MG TAB PO SCH (21:00)
[2022-09-29] MEDS ORDERED: Famotidine 20 MG TAB PO SCH (21:00)
[2022-09-30 05:09] LABS: #Basophils 0.1 10x3/uL (0.0-0.2); #Eosinphils 0.3 10x3/uL (0.0-0.5); #Monocytes 1.3 10x3/uL (0.0-1.1); #Neutrophils 6.3 10x3/uL (1.5-8.4); %Basophils 0.8 % (0.0-2.0); %Eosinophils 2.7 % (0.0-6.0); %Lymphocytes 19.6 % (18.0-47.0); %Monocytes 13.5 % (0.0-10.0); %Neutrophils 63.2 % (40.0-75.0); Hemoglobin 11.5 g/dL (13.5-17.5); Mean Corpuscular HGB CONC 33.3 g/dL (32.0-36.0); Mean Corpuscular Hemoglobin 32.5 pg (27.0-33.0); Mean Corpuscular Volume 97.5 fl (81.2-95.1); Mean Platelet Volume 11.8 fl (7.4-10.4); Platelet Count 244 10x3/uL (150-450); RBC Distribution Width 14.4 % (11.5-14.5); Red Blood Cell (RBC) Count 3.54 10x6/uL (4.32-5.72)
[2022-09-30 05:21] LABS: Anion Gap 18 mmol/L (10-20); BUN (Urea Nitrogen) 37 mg/dL (8.4-25.7); Calc. Creatinine Clearance 11 mL/min (70-130); Calcium 9.4 mg/dL (7.8-10.44); Carbon Dioxide 24 mmol/L (23-31); Chloride 99 mmol/L (98-107); Estimated GFR 7; Glucose 85 mg/dL (80-115); Magnesium 2.4 mg/dL (1.6-2.6); Sodium 136 mmol/L (136-145)
[2022-09-30] MEDS: Sacubitril 49 MG/Valsartan 51 MG TABLET PO SCH (07:53)
[2022-09-30] MEDS: Carvedilol 25 MG TAB PO SCH (07:54)
[2022-09-30 08:12] LABS: SARS-CoV-2 NAA Rapid Test Not Detected (NotDetected)
[2022-09-30 08:16] VITALS: BP 154/66; TEMP 98.1
[2022-09-30] MEDS ORDERED: Aspirin 81 mg Enteric Coated Tablet PO SCH (09:00)
[2022-09-30] MEDS ORDERED: Fish Oil 1,000 MG CAP PO SCH (09:00)
[2022-09-30] MEDS ORDERED: hydrALAZINE 25 MG TAB PO SCH (09:00)
[2022-09-30] MEDS ORDERED: Prasugrel 10 MG TAB PO SCH (09:00)
== END 2022-09-30 11:00 | disposition home or self-care (01) ==
LOC: CSHERS 07:29 → CSHTELE 11:34
PROVIDERS: ADMIT Internal Medicine; ATTEND Internal Medicine
DX: I25.118 Atherosclerotic heart disease of native coronary artery with other forms of angina pectoris (principal); I13.2 Hypertensive heart and chronic kidney disease with heart failure and with stage 5 chronic kidney disease, or end stage renal disease; I50.42 Chronic combined systolic (congestive) and diastolic (congestive) heart failure; N18.6 End stage renal disease; Z99.2 Dependence on renal dialysis; E78.5 Hyperlipidemia, unspecified; I42.0 Dilated cardiomyopathy; D53.9 Nutritional anemia, unspecified; R77.8 Other specified abnormalities of plasma proteins; Z20.822 Contact with and (suspected) exposure to COVID-19; Z87.891 Personal history of nicotine dependence; Z88.2 Allergy status to sulfonamides; Z88.8 Allergy status to other drugs, medicaments and biological substances; Z79.82 Long term (current) use of aspirin; Z79.899 Other long term (current) drug therapy; Z95.5 Presence of coronary angioplasty implant and graft
CPT/HCPCS: 71045; 80048; 80053; 82550; 82553; 83690; 83735; 84443; 84484 ×2; 85025 ×2; 93005; 94760; 99285; G0378 ×3; U0002; 36415; 90935; G0257; J1644

== ENCOUNTER 2022-10-20 02:17 | Inpatient (IN) | payer MEDICARE ==
[2022-10-20 02:49] LABS: #Basophils 0.1 10x3/uL (0.0-0.2); #Eosinphils 0.4 10x3/uL (0.0-0.5); #Monocytes 1.3 10x3/uL (0.0-1.1); %Eosinophils 3.5 % (0.0-6.0); %Lymphocytes 23.2 % (18.0-47.0); %Monocytes 11.5 % (0.0-10.0); %Neutrophils 60.5 % (40.0-75.0); Hemoglobin 11.6 g/dL (13.5-17.5); Mean Corpuscular HGB CONC 34.4 g/dL (32.0-36.0); Mean Corpuscular Hemoglobin 33.3 pg (27.0-33.0); Mean Corpuscular Volume 96.8 fl (81.2-95.1); Mean Platelet Volume 12.1 fl (7.4-10.4); Platelet Count 245 10x3/uL (150-450); RBC Distribution Width 15.8 % (11.5-14.5); Red Blood Cell (RBC) Count 3.48 10x6/uL (4.32-5.72); White Blood Cell (WBC) Count 11.5 10x3/uL (3.5-10.5)
[2022-10-20 03:04] LABS: ALT (SGPT) 12 U/L (8-55); AST (SGOT) 13 U/L (5-34); Albumin 4.2 g/dL (3.4-4.8); Alkaline Phosphatase 72 U/L (40-110); Anion Gap 27 mmol/L (10-20); BUN (Urea Nitrogen) 56 mg/dL (8.4-25.7); Bilirubin, Total 0.5 mg/dL (0.2-1.2); Calc. Creatinine Clearance 0 mL/min (70-130); Calcium 9.8 mg/dL (7.8-10.44); Carbon Dioxide 22 mmol/L (23-31); Chloride 92 mmol/L (98-107); Estimated GFR 5; Glucose 110 mg/dL (80-115); Potassium 5.5 mmol/L (3.5-5.1); Protein, Total 7.2 g/dL (5.8-8.1); Sodium 135 mmol/L (136-145)
[2022-10-20 03:50] LABS: CKMB 1.6 ng/mL (0-6.6)
[2022-10-20] MEDS ORDERED: Morphine 2 MG/ML VIAL ONE (03:54)
[2022-10-20] MEDS ORDERED: Ondansetron PF 4 MG/2 ML Vial IVP PRN (03:57)
[2022-10-20] MEDS ORDERED: Senokot S 8.6-50 MG TAB PO PRN (03:57)
[2022-10-20] MEDS ORDERED: Calcium Carbonate 500 MG ChewTAB PO PRN (03:57)
[2022-10-20] MEDS ORDERED: Guaifenesin DM 100-10/5 ML UDCUP PO PRN (03:57)
[2022-10-20] MEDS ORDERED: Acetaminophen 325 MG TAB PO PRN (03:57)
[2022-10-20] MEDS ORDERED: Nitroglycerin 0.4 MG TAB (25 Tab Bottle) SL PRN (03:59)
[2022-10-20] MEDS ORDERED: Morphine 2 MG/ML SYRINGE SLOW IVP PRN (03:59)
[2022-10-20 04:14] LABS: Hemoglobin 11.8 g/dL (13.5-17.5); Platelet Count 240 10x3/uL (150-450)
[2022-10-20 04:18] LABS: PTT 26.9 sec (22.0-33.0); Prothrombin Time 11.1 sec (9.5-12.1)
[2022-10-20 04:45] VITALS: BMI 27.2
[2022-10-20] MEDS ORDERED: Famotidine/PF 20 mg/2ml Vial SLOW IVP SCH (05:30)
[2022-10-20] MEDS ORDERED: Heparin 25,000 units/D5W 500 ML IVPB SCH ×2 (05:30→15:45)
[2022-10-20] MEDS ORDERED: Calcium Gluc 4.6 MEQ/10 ML (100 MG/ML) SLOW IVP SCH (05:30)
[2022-10-20] MEDS: HYDROcodone/Acetaminophen 5/325 mg Tablet PO PRN ×2 (05:30→23:56)
[2022-10-20 05:42] LABS: SARS-CoV-2 NAA Rapid Test Not Detected (NotDetected)
[2022-10-20] MEDS: Heparin 10,000 UNITS/ 10 ML VIAL SLOW IVP SCH ×4 (05:55→23:32)
[2022-10-20 07:13] LABS: CKMB 2.5 ng/mL (0-6.6)
[2022-10-20] MEDS ORDERED: Communication Order-Pharmacy FS SCH (08:45)
[2022-10-20] MEDS: Aspirin 81 mg Enteric Coated Tablet PO SCH (09:20)
[2022-10-20] MEDS: hydrALAZINE 25 MG TAB PO SCH ×2 (09:20→14:54)
[2022-10-20] MEDS: Carvedilol 25 MG TAB PO SCH ×2 (09:20→14:54)
[2022-10-20] MEDS: Prasugrel 10 MG TAB PO SCH (09:21)
[2022-10-20] MEDS: Folic Acid/Vit B Comp W-C PO SCH (09:33)
[2022-10-20] MEDS: Fish Oil 1,000 MG CAP PO SCH (09:33)
[2022-10-20 10:26] LABS: Anion Gap 21 mmol/L (10-20); BUN (Urea Nitrogen) 59 mg/dL (8.4-25.7); Calc. Creatinine Clearance 7 mL/min (70-130); Calcium 9.8 mg/dL (7.8-10.44); Carbon Dioxide 25 mmol/L (23-31); Chloride 95 mmol/L (98-107); Estimated GFR 5; Glucose 106 mg/dL (80-115); Potassium 5.3 mmol/L (3.5-5.1); Sodium 136 mmol/L (136-145)
[2022-10-20 15:27] LABS: CKMB 10.2 ng/mL (0-6.6)
[2022-10-20 16:19] LABS: Platelet Count 268 10x3/uL (150-450)
[2022-10-20 19:45] LABS: Troponin I 2.352 ng/mL (< 0.028)
[2022-10-20] MEDS: Morphine 2 MG/ML VIAL SLOW IVP PRN ×2 (19:52→19:53)
[2022-10-20 23:17] LABS: HBSAg Index 0.14 S/CO (0-0.99)
[2022-10-20] MEDS: Rosuvastatin 10 MG TAB PO SCH (23:57)
[2022-10-21] MEDS: hydrALAZINE 25 MG TAB PO SCH ×4 (00:04→20:32)
[2022-10-21 05:28] LABS: Hep B Surf Ag NonReactive S/CO (NonReactive)
[2022-10-21 05:44] LABS: #Basophils 0.1 10x3/uL (0.0-0.2); #Eosinphils 0.1 10x3/uL (0.0-0.5); #Monocytes 2.1 10x3/uL (0.0-1.1); #Neutrophils 12.4 10x3/uL (1.5-8.4); %Basophils 0.5 % (0.0-2.0); %Eosinophils 0.4 % (0.0-6.0); %Lymphocytes 8.1 % (18.0-47.0); %Monocytes 13.2 % (0.0-10.0); %Neutrophils 77.2 % (40.0-75.0); Hemoglobin 11.7 g/dL (13.5-17.5); Mean Corpuscular HGB CONC 33.6 g/dL (32.0-36.0); Mean Corpuscular Hemoglobin 33.1 pg (27.0-33.0); Mean Corpuscular Volume 98.3 fl (81.2-95.1); Mean Platelet Volume 11.6 fl (7.4-10.4); Platelet Count 243 10x3/uL (150-450); RBC Distribution Width 15.9 % (11.5-14.5); Red Blood Cell (RBC) Count 3.54 10x6/uL (4.32-5.72); White Blood Cell (WBC) Count 16.1 10x3/uL (3.5-10.5)
[2022-10-21 05:47] LABS: Anion Gap 20 mmol/L (10-20); BUN (Urea Nitrogen) 34 mg/dL (8.4-25.7); Calc. Creatinine Clearance 10 mL/min (70-130); Calcium 9.7 mg/dL (7.8-10.44); Carbon Dioxide 32 mmol/L (23-31); Cardiac Risk 2.8 (Less than 4.5); Chloride 95 mmol/L (98-107); Cholesterol 145 mg/dl (< 200 Desired); Estimated GFR 7; Glucose 123 mg/dL (80-115); HDL Cholesterol 52 mg/dL (>60 Neg Risk); LDL Cholesterol, Calculated 81 mg/dL; Potassium 5.5 mmol/L (3.5-5.1); Sodium 141 mmol/L (136-145); Triglycerides 62 mg/dL (Less than 150)
[2022-10-21] MEDS: Carvedilol 25 MG TAB PO SCH ×2 (06:24→17:21)
[2022-10-21] MEDS: Folic Acid/Vit B Comp W-C PO SCH (06:25)
[2022-10-21] MEDS: Aspirin 81 mg Enteric Coated Tablet PO SCH (06:25)
[2022-10-21] MEDS: Fish Oil 1,000 MG CAP PO SCH (06:25)
[2022-10-21] MEDS: Prasugrel 10 MG TAB PO SCH (06:25)
[2022-10-21] MEDS ORDERED: Dextrose 50% Abboject 50 ML SYRINGE SLOW IVP ONE (07:49)
[2022-10-21] MEDS ORDERED: Insulin Regular 300 UNITS/3 ML VIAL IVP SCH (08:00)
[2022-10-21] MEDS ORDERED: Dextrose 10% in Water 250 ML IVPB SCH (08:00)
[2022-10-21] MEDS ORDERED: Calcium Gluc 4.6 MEQ/10 ML (100 MG/ML) SLOW IVP SCH (08:00)
[2022-10-21] MEDS ORDERED: Lidocaine 1% (PF) 30 ML VIAL ONE ×2 (08:09→14:40)
[2022-10-21] MEDS ORDERED: Iopamidol 300 61% 100 ML VIAL FS ONE (09:33)
[2022-10-21 12:22] LABS: Potassium 4.7 mmol/L (3.5-5.1)
[2022-10-21 14:04] LABS: Hep C IgG Ab Non-Reactive (NonReactive); Hep C Index 0.07 S/CO (0-0.79)
[2022-10-21 14:26] LABS: HBSAB Concentration 27.72 mIU/mL; Hep B Surf AB Reactive (NonReactive)
[2022-10-21] MEDS ORDERED: Nitroglycerin 50 MG/250 ML BOT 250 ML ONE (14:40)
[2022-10-21] MEDS ORDERED: Adenosine 6 MG/2 ML VIAL ONE (14:40)
[2022-10-21] MEDS ORDERED: Heparin 10,000 UNITS/ 10 ML VIAL ONE ×2 (14:40→16:35)
[2022-10-21] MEDS ORDERED: Sodium Chloride 0.9% 1,000 ML ONE (14:42)
[2022-10-21] MEDS ORDERED: Fentanyl 100 MCG/2 ML VIAL ONE (15:29)
[2022-10-21] MEDS ORDERED: Midazolam HCl 2 mg/2 ml Vial ONE (15:29)
[2022-10-21] MEDS ORDERED: Nitroglycerin 0.4 MG TAB (25 Tab Bottle) SL PRN (16:41)
[2022-10-21] MEDS ORDERED: Acetaminophen/Codeine 30-300mg Tablet PO PRN ×2 (16:41)
[2022-10-21] MEDS ORDERED: Sodium Chloride 0.9% 200 ML IV PRN (16:41)
[2022-10-21] MEDS ORDERED: Protamine Sulfate 50 MG/5 ML VIAL ONE (16:42)
[2022-10-21] MEDS: Rosuvastatin 10 MG TAB PO SCH (20:31)
[2022-10-21 21:29] LABS: Hep B Core Total Ab Reactive (NonReactive); Hep B Core Total Index 6.49 S/CO (0-0.79)
[2022-10-22 03:52] LABS: #Basophils 0.1 10x3/uL (0.0-0.2); #Eosinphils 0.1 10x3/uL (0.0-0.5); #Neutrophils 10.9 10x3/uL (1.5-8.4); %Basophils 0.5 % (0.0-2.0); %Eosinophils 0.9 % (0.0-6.0); %Lymphocytes 11.4 % (18.0-47.0); %Monocytes 13.7 % (0.0-10.0); %Neutrophils 73.2 % (40.0-75.0); Hemoglobin 10.1 g/dL (13.5-17.5); Mean Corpuscular HGB CONC 33.4 g/dL (32.0-36.0); Mean Corpuscular Hemoglobin 32.7 pg (27.0-33.0); Mean Corpuscular Volume 97.7 fl (81.2-95.1); Mean Platelet Volume 11.9 fl (7.4-10.4); Platelet Count 212 10x3/uL (150-450); Red Blood Cell (RBC) Count 3.09 10x6/uL (4.32-5.72); White Blood Cell (WBC) Count 14.9 10x3/uL (3.5-10.5)
[2022-10-22 04:07] LABS: Anion Gap 18 mmol/L (10-20); BUN (Urea Nitrogen) 56 mg/dL (8.4-25.7); Calc. Creatinine Clearance 8 mL/min (70-130); Calcium 9.5 mg/dL (7.8-10.44); Carbon Dioxide 29 mmol/L (23-31); Chloride 91 mmol/L (98-107); Estimated GFR 5; Glucose 99 mg/dL (80-115); Potassium 5.4 mmol/L (3.5-5.1); Sodium 133 mmol/L (136-145)
[2022-10-22] MEDS: Albumin 25% 25 GM/100 ML BOT IVPB SCH ×3 (11:30→23:51)
[2022-10-22] MEDS: Fish Oil 1,000 MG CAP PO SCH (11:30)
[2022-10-22] MEDS ORDERED: Sodium Chloride 0.9% 500 ML IV SCH (11:30)
[2022-10-22] MEDS: Aspirin 81 mg Enteric Coated Tablet PO SCH (11:30)
[2022-10-22] MEDS: Carvedilol 25 MG TAB PO SCH (11:30)
[2022-10-22] MEDS: Folic Acid/Vit B Comp W-C PO SCH (11:35)
[2022-10-22 13:21] LABS: Anion Gap 17 mmol/L (10-20); BUN (Urea Nitrogen) 28 mg/dL (8.4-25.7); Calc. Creatinine Clearance 14 mL/min (70-130); Calcium 9.1 mg/dL (7.8-10.44); Carbon Dioxide 25 mmol/L (23-31); Chloride 99 mmol/L (98-107); Estimated GFR 10; Glucose 100 mg/dL (80-115); Potassium 4.4 mmol/L (3.5-5.1); Sodium 137 mmol/L (136-145)
[2022-10-22] MEDS: Prasugrel 10 MG TAB PO SCH (14:32)
[2022-10-22 16:07] LABS: Hemoglobin 9.8 g/dL (13.5-17.5); Platelet Count 194 10x3/uL (150-450)
[2022-10-22] MEDS: Rosuvastatin 10 MG TAB PO SCH (20:37)
[2022-10-23 04:13] LABS: Anion Gap 18 mmol/L (10-20); BUN (Urea Nitrogen) 46 mg/dL (8.4-25.7); Calc. Creatinine Clearance 10 mL/min (70-130); Calcium 9.3 mg/dL (7.8-10.44); Carbon Dioxide 26 mmol/L (23-31); Chloride 96 mmol/L (98-107); Estimated GFR 7; Glucose 97 mg/dL (80-115); Potassium 5.2 mmol/L (3.5-5.1); Sodium 135 mmol/L (136-145)
[2022-10-23] MEDS: Albumin 25% 25 GM/100 ML BOT IVPB SCH (05:36)
[2022-10-23] MEDS: Folic Acid/Vit B Comp W-C PO SCH (08:30)
[2022-10-23] MEDS: Prasugrel 10 MG TAB PO SCH (08:31)
[2022-10-23] MEDS: Fish Oil 1,000 MG CAP PO SCH (08:31)
[2022-10-23] MEDS: Aspirin 81 mg Enteric Coated Tablet PO SCH (08:31)
[2022-10-23 17:05] VITALS: BP 139/64; TEMP 98.7
== END 2022-10-23 16:30 | disposition home or self-care (01) | DRG 246 ==
LOC: CSHERS 02:17 → CSHTELE 04:42
PROVIDERS: ADMIT Student in an Organized Health Care Education/Training Program; ATTEND Family Medicine
PROC: 5A1D70Z Performance of Urinary Filtration, Intermittent, Less than 6 Hours Per Day (ICD-10-PCS; 2022-10-20)
PROC: 027034Z Dilation of Coronary Artery, One Artery with Drug-eluting Intraluminal Device, Percutaneous Approach (ICD-10-PCS; principal; 2022-10-21)
PROC: 4A023N7 Measurement of Cardiac Sampling and Pressure, Left Heart, Percutaneous Approach (ICD-10-PCS; 2022-10-21)
PROC: B2111ZZ Fluoroscopy of Multiple Coronary Arteries using Low Osmolar Contrast (ICD-10-PCS; 2022-10-21)
PROC: B2151ZZ Fluoroscopy of Left Heart using Low Osmolar Contrast (ICD-10-PCS; 2022-10-21)
PROC: B240ZZ3 Ultrasonography of Single Coronary Artery, Intravascular (ICD-10-PCS; 2022-10-21)
PROC: 30233J1 Transfusion of Nonautologous Serum Albumin into Peripheral Vein, Percutaneous Approach (ICD-10-PCS; 2022-10-22)
DX: I21.4 Non-ST elevation (NSTEMI) myocardial infarction (principal); I50.43 Acute on chronic combined systolic (congestive) and diastolic (congestive) heart failure; N18.6 End stage renal disease; E85.9 Amyloidosis, unspecified; I13.2 Hypertensive heart and chronic kidney disease with heart failure and with stage 5 chronic kidney disease, or end stage renal disease; I42.0 Dilated cardiomyopathy; Z96.652 Presence of left artificial knee joint; E87.5 Hyperkalemia; I95.9 Hypotension, unspecified; I25.10 Atherosclerotic heart disease of native coronary artery without angina pectoris; Z95.5 Presence of coronary angioplasty implant and graft; Z95.810 Presence of automatic (implantable) cardiac defibrillator; Z88.2 Allergy status to sulfonamides; Z88.8 Allergy status to other drugs, medicaments and biological substances; Z79.82 Long term (current) use of aspirin; Z79.899 Other long term (current) drug therapy; Z99.2 Dependence on renal dialysis; Z90.81 Acquired absence of spleen; Z82.49 Family history of ischemic heart disease and other diseases of the circulatory system; Z87.891 Personal history of nicotine dependence; Z86.718 Personal history of other venous thrombosis and embolism; Z20.822 Contact with and (suspected) exposure to COVID-19
CPT/HCPCS: 36415; 71045; 80048; 80053; 80061; 82553; 83880; 84484; 85014; 85018; 85025; 85049; 85347; 85610; 85730; 86704; 90935; 92928; 92978; 93005; 93010; 93306; 93458; 94640; 94760; 94762; 96374; 97139; 99152; 99153; C1725; C1726; C1753; C1760; C1769; C1874; C9600; G0257; J0153; J0610; J1644; J2001; J2250; J2272; J2405; J2720; J3010; J7030; J7050; J7611; P9047; Q9967; S0028; U0002

== ENCOUNTER 2023-03-16 08:44 | Emergency (ER) | payer MEDICARE ==
[2023-03-16 09:15] LABS: #Basophils 0.1 10x3/uL (0.0-0.2); #Monocytes 1.4 10x3/uL (0.0-1.1); #Neutrophils 11.1 10x3/uL (1.5-8.4); %Basophils 0.4 % (0.0-2.0); %Eosinophils 0.1 % (0.0-6.0); %Lymphocytes 6.7 % (18.0-47.0); %Neutrophils 82.1 % (40.0-75.0); Hematocrit 36.4 % (38.8-50.0); Hemoglobin 12.3 g/dL (13.5-17.5); Mean Corpuscular HGB CONC 33.8 g/dL (32.0-36.0); Mean Corpuscular Hemoglobin 32.4 pg (27.0-33.0); Mean Corpuscular Volume 95.8 fl (81.2-95.1); Mean Platelet Volume 12.5 fl (7.4-10.4); Platelet Count 148 10x3/uL (150-450); RBC Distribution Width 18.5 % (11.5-14.5); White Blood Cell (WBC) Count 13.5 10x3/uL (3.5-10.5)
[2023-03-16 09:23] LABS: INR-International Normal Ratio 1.2; PTT 28.7 sec (22.0-33.0); Prothrombin Time 12.9 sec (9.5-12.1)
[2023-03-16 09:28] LABS: ALT (SGPT) 26 U/L (8-55); AST (SGOT) 35 U/L (5-34); Albumin 3.2 g/dL (3.4-4.8); Alkaline Phosphatase 152 U/L (40-110); Anion Gap 22 mmol/L (10-20); BUN (Urea Nitrogen) 72 mg/dL (8.4-25.7); Bilirubin, Total 0.9 mg/dL (0.2-1.2); Calc. Creatinine Clearance 0 mL/min (70-130); Calcium 9.2 mg/dL (7.8-10.44); Carbon Dioxide 25 mmol/L (23-31); Chloride 94 mmol/L (98-107); Estimated GFR 6; Globulin 2.8 g/dL (2.4-3.5); Glucose 102 mg/dL (80-115); Potassium 3.9 mmol/L (3.5-5.1); Sodium 137 mmol/L (136-145)
[2023-03-16] MEDS ORDERED: Acetaminophen 325 MG TAB ONE (09:34)
[2023-03-16 09:48] LABS: CKMB 0.3 ng/mL (0-6.6)
== END 2023-03-16 14:48 | disposition home or self-care (01) ==
LOC: CSHERS 08:44
DX: I13.0 Hypertensive heart and chronic kidney disease with heart failure and stage 1 through stage 4 chronic kidney disease, or unspecified chronic kidney disease (principal); N18.9 Chronic kidney disease, unspecified; I50.9 Heart failure, unspecified; E78.5 Hyperlipidemia, unspecified; Z99.2 Dependence on renal dialysis
CPT/HCPCS: 36415; 70450; 71045; 80053; 82553; 83605; 84484; 85025; 85610; 85730; 93005; 93010; 94640; 94760; J7611